=== PATIENT | female | born 1935 | race Caucasian/White ===

== ENCOUNTER 2020-02-22 11:55 | Inpatient (IN) ==
[2020-02-22 13:03] LABS: Basophils % 0.5 %; Eosinophils % 0.1 %; Hematocrit 44.2 % (35.3-44.9); Hemoglobin 13.4 g/dL (11.5-15.4); Immature Granulocytes % 0.5 % (0-4); Lymphocytes # 0.5 K/mcL (0.6-4.6); Lymphocytes % 5.6 %; Mean Corpuscular HGB Conc 30.3 g/dL (31.6-35.5); Mean Corpuscular Hemoglobin 27.9 pg (28.0-33.3); Mean Corpuscular Volume 92.1 fL (83.0-100.0); Mean Platelet Volume 10.4 fL (9.4-12.4); Monocytes # 0.7 K/mcL (0.0-1.3); Neutrophils # 7.1 K/mcL (1.6-8.9); Platelet Count 183 K/mcL (140-400); Red Cell Distribution Width 13.8 % (11.5-14.5); Segmented Neutrophils % 85.3 %; White Blood Count 8.3 K/mcL (4.3-11.1)
[2020-02-22 13:18] LABS: BUN/Creatinine Ratio 18 (6-26); Blood Urea Nitrogen 19 mg/dL (8-23); C-Reactive Protein 97 mg/L (Less than 10); Calcium 9.5 mg/dL (8.6-10.3); Carbon Dioxide 18 mEq/L (23-29); Chloride 104 mEq/L (98-107); Glucose 137 mg/dL (70-105); Osmolality,Calculated 282 (280-300); Potassium 3.6 mEq/L (3.5-5.1); Sodium 134 mEq/L (136-145); eGFR For African Americans > 60 (> 60); eGFR For Non-African Americans 51 (> 60)
[2020-02-22] MEDS ORDERED: Piperacillin/Tazobactam 3.375 GM in 0.9 % Sodium Chloride Mini Bag 100 ML IVPB ONE (13:46)
[2020-02-22] MEDS ORDERED: Vancomycin 1,250 MG/262.5 ML IV.SOLN IVPB STA (13:46)
[2020-02-22] MEDS ORDERED: Naloxone 0.4 MG/ML INJ IVP PRN (14:52)
[2020-02-22] MEDS: Gabapentin 300 MG CAPSULE PO SCH ×2 (15:13→19:45)
[2020-02-22] MEDS ORDERED: *HR* Dextrose 50 % in Water (Vial) 50 ML VIAL IVP PRN (16:41)
[2020-02-22] MEDS ORDERED: Dextrose Gel 15 GM/37.5 ML TUBE PO PRN ×2 (16:41)
[2020-02-22] MEDS ORDERED: D5% in Water 1,000 ML IVC PRN (16:41)
[2020-02-22] MEDS ORDERED: *HR* HYDROcodone/Acet 5/325 mg TABLET PO PRN (16:44)
[2020-02-22] MEDS: Acetaminophen 325 MG TABLET PO PRN (21:26)
[2020-02-23 06:49] LABS: Hematocrit 40.6 % (35.3-44.9); Hemoglobin 12.6 g/dL (11.5-15.4); Mean Corpuscular Hemoglobin 27.7 pg (28.0-33.3); Mean Corpuscular Volume 89.2 fL (83.0-100.0); Mean Platelet Volume 9.8 fL (9.4-12.4); Platelet Count 231 K/mcL (140-400); Red Blood Count 4.55 M/mcL (3.82-4.97); Red Cell Distribution Width 13.7 % (11.5-14.5); White Blood Count 6.9 K/mcL (4.3-11.1)
[2020-02-23 07:21] LABS: BUN/Creatinine Ratio 17 (6-26); Blood Urea Nitrogen 17 mg/dL (8-23); Calcium 9.4 mg/dL (8.6-10.3); Carbon Dioxide 24 mEq/L (23-29); Chloride 104 mEq/L (98-107); Estimated Average Glucose 103 mg/dl; Glucose 94 mg/dL (70-105); Hemoglobin A1C 5.2 %; Osmolality,Calculated 281 (280-300); Potassium 3.6 mEq/L (3.5-5.1); Sodium 135 mEq/L (136-145); eGFR For African Americans > 60 (> 60); eGFR For Non-African Americans 54 (> 60)
[2020-02-23] MEDS: Gabapentin 300 MG CAPSULE PO SCH ×3 (08:49→20:47)
[2020-02-23] MEDS: CeFAZolin 2 GM/120 ML BAG IVPB SCH ×2 (15:03→23:36)
[2020-02-23] MEDS ORDERED: Ringers Solution, Lactated 500 ML IVC SCH (16:30)
[2020-02-23] MEDS: Acetaminophen 325 MG TABLET PO PRN (17:02)
[2020-02-24 02:30] LABS: Immature Granulocytes % 0.8 % (0-4); Mean Corpuscular Volume 87.7 fL (83.0-100.0)
[2020-02-24 02:32] LABS: Basophils % 0.2 %; Eosinophils # 0.1 K/mcL (0.0-0.6); Eosinophils % 1.4 %; Hematocrit 37.7 % (35.3-44.9); Immature Platelets 4.4 % (1.1-6.1); Lymphocytes # 1.4 K/mcL (0.6-4.6); Lymphocytes % 15.2 %; Mean Corpuscular HGB Conc 31.8 g/dL (31.6-35.5); Mean Corpuscular Hemoglobin 27.9 pg (28.0-33.3); Mean Platelet Volume 11.1 fL (9.4-12.4); Monocytes # 0.8 K/mcL (0.0-1.3); Neutrophils # 6.7 K/mcL (1.6-8.9); Platelet Count 203 K/mcL (140-400); Segmented Neutrophils % 73.4 %; White Blood Count 9.1 K/mcL (4.3-11.1)
[2020-02-24 02:36] LABS: BUN/Creatinine Ratio 22 (6-26); Blood Urea Nitrogen 21 mg/dL (8-23); Calcium 8.9 mg/dL (8.6-10.3); Carbon Dioxide 20 mEq/L (23-29); Chloride 106 mEq/L (98-107); Glucose 87 mg/dL (70-105); Osmolality,Calculated 284 (280-300); Potassium 4.2 mEq/L (3.5-5.1); Sodium 136 mEq/L (136-145); eGFR For African Americans > 60 (> 60); eGFR For Non-African Americans 55 (> 60)
[2020-02-24] MEDS: Gabapentin 300 MG CAPSULE PO SCH ×3 (08:30→20:35)
[2020-02-24] MEDS: CeFAZolin 2 GM/120 ML BAG IVPB SCH ×3 (08:30→23:17)
[2020-02-24] MEDS ORDERED: *HR* HYDROcodone/Acet 5/325 mg TABLET PO PRN ×2 (14:02→16:17)
[2020-02-24] MEDS ORDERED: Lidocaine 1% 20 ML MDV ONE (14:27)
[2020-02-24] MEDS ORDERED: *HR* Labetalol 20 MG/4 ML SYRINGE IVP PRN ×2 (15:34→16:17)
[2020-02-24] MEDS ORDERED: *HR* FentaNYL (PF) 100 MCG/2 ML VIAL ONE (16:11)
[2020-02-24] MEDS ORDERED: Lidocaine -MPF 2% 2 ML VIAL ONE (16:11)
[2020-02-24] MEDS ORDERED: Ketorolac 30 MG/ML VIAL ONE (16:16)
[2020-02-24] MEDS ORDERED: Dextrose Gel 15 GM/37.5 ML TUBE PO PRN ×2 (16:17)
[2020-02-24] MEDS ORDERED: *HR* Dextrose 50 % in Water (Vial) 50 ML VIAL IVP PRN (16:17)
[2020-02-24] MEDS ORDERED: D5% in Water 1,000 ML IVC PRN (16:17)
[2020-02-24] MEDS ORDERED: Naloxone 0.4 MG/ML INJ IVP PRN (16:17)
[2020-02-24] MEDS: Acetaminophen 325 MG TABLET PO PRN (23:04)
[2020-02-25 05:40] LABS: Hematocrit 34.4 % (35.3-44.9); Hemoglobin 10.9 g/dL (11.5-15.4); Mean Corpuscular HGB Conc 31.7 g/dL (31.6-35.5); Mean Corpuscular Hemoglobin 28.1 pg (28.0-33.3); Mean Corpuscular Volume 88.7 fL (83.0-100.0); Mean Platelet Volume 9.8 fL (9.4-12.4); Platelet Count 219 K/mcL (140-400); Red Blood Count 3.88 M/mcL (3.82-4.97); Red Cell Distribution Width 13.9 % (11.5-14.5)
[2020-02-25 05:58] LABS: BUN/Creatinine Ratio 22 (6-26); Blood Urea Nitrogen 23 mg/dL (8-23); Calcium 8.5 mg/dL (8.6-10.3); Carbon Dioxide 22 mEq/L (23-29); Chloride 104 mEq/L (98-107); Glucose 99 mg/dL (70-105); Osmolality,Calculated 280 (280-300); Potassium 3.3 mEq/L (3.5-5.1); Sodium 133 mEq/L (136-145); eGFR For African Americans > 60 (> 60); eGFR For Non-African Americans 50 (> 60)
[2020-02-25] MEDS: Gabapentin 300 MG CAPSULE PO SCH ×3 (08:15→22:11)
[2020-02-25] MEDS: CeFAZolin 2 GM/120 ML BAG IVPB SCH ×2 (08:15→16:37)
[2020-02-25] MEDS: Acetaminophen 325 MG TABLET PO PRN ×2 (08:15→17:19)
[2020-02-26 05:57] LABS: Hematocrit 35.8 % (35.3-44.9); Mean Corpuscular HGB Conc 30.7 g/dL (31.6-35.5); Mean Corpuscular Hemoglobin 27.4 pg (28.0-33.3); Mean Corpuscular Volume 89.3 fL (83.0-100.0); Mean Platelet Volume 9.9 fL (9.4-12.4); Platelet Count 239 K/mcL (140-400); Red Blood Count 4.01 M/mcL (3.82-4.97); Red Cell Distribution Width 13.8 % (11.5-14.5); White Blood Count 5.1 K/mcL (4.3-11.1)
[2020-02-26 05:58] LABS: BUN/Creatinine Ratio 21 (6-26); Blood Urea Nitrogen 17 mg/dL (8-23); Carbon Dioxide 20 mEq/L (23-29); Chloride 107 mEq/L (98-107); Potassium 3.3 mEq/L (3.5-5.1); Sodium 137 mEq/L (136-145); eGFR For African Americans > 60 (> 60)
[2020-02-26 05:59] LABS: Calcium 8.7 mg/dL (8.6-10.3); Glucose 96 mg/dL (70-105); Osmolality,Calculated 285 (280-300); eGFR For Non-African Americans > 60 (> 60)
[2020-02-26] MEDS: CeFAZolin 2 GM/120 ML BAG IVPB SCH ×2 (06:26→08:00)
[2020-02-26] MEDS: Gabapentin 300 MG CAPSULE PO SCH ×2 (07:59→16:45)
[2020-02-26] MEDS ORDERED: Doxycycline 100 MG CAPSULE PO SCH (09:00)
[2020-02-26 15:24] VITALS: BP 110/68
== END 2020-02-26 17:04 | disposition home health service (06) | DRG 616 ==
LOC: EMEROOARM 11:55 → 3ANU 11:55 → SUATTDRO 14:21 → 3ANU 14:51 → SUATTDRO 16:37
PROVIDERS: ADMIT Internal Medicine; ATTEND Student in an Organized Health Care Education/Training Program